=== PATIENT | female | born 1995 | race African-American/Black ===

== ENCOUNTER 2017-02-16 10:47 | Emergency (ER) | payer MEDICAID ==
[~2017-02-16] VITALS: Ht 157.5 cm; Wt 50.3 kg
[2017-02-16 11:06] VITALS: BP_SYST 117
--- NOTE | 2017-02-16 11:06 | NUR ---
Pt to bed 7
--- NOTE | 2017-02-16 11:25 | NUR ---
Pt complains of mid abdominal pain since this morning at 0800, had an episode of diarrhea and nausea but denies vomiting, or fever. Pt states when she ate she felt like she had to vomit but nothing came out. Pt complains of generalized weakness. Pt was able to ambulate into the ER with no noted difficulty. No other injuries/complaints per pt or noted.
--- NOTE | 2017-02-16 11:29 | NUR ---
Dr Griffiths at bedside examining patient
[2017-02-16] MEDS ORDERED: ONDANSETRON 4 MG ODT TAB PO ONE (11:45)
[2017-02-16] MEDS ORDERED: IBUPROFEN 800 MG TABLET PO ONE (11:45)
[2017-02-16 12:05] LABS: BASOPHILS # (AUTO) 0.1 K/uL (0.0-0.2); BASOPHILS % (AUTO) 0.4 % (0.0-2.0); EOSINOPHILS # (AUTO) 0.2 K/uL (0.0-0.4); EOSINOPHILS % (AUTO) 1.6 % (0.0-4.0); HEMATOCRIT 47.5 % (36-48); HEMOGLOBIN 15.7 g/dL (12.0-16.0); LYMPHOCYTES # (AUTO) 0.9 K/uL (1.0-5.5); LYMPHOCYTES % (AUTO) 7.3 % (20.5-51.5); MEAN CORPUSCULAR HEMOGLOBIN 28 pg (27-31); MEAN CORPUSCULAR HGB CONC 33 % (32-36); MEAN CORPUSCULAR VOLUME 83 fL (79.0-98.0); MONOCYTES # (AUTO) 0.6 K/uL (0.0-1.0); MONOCYTES % (AUTO) 4.8 % (1.7-9.3); NEUTROPHILS % (AUTO) 85.9 % (40.0-70.0); PLATELET COUNT (AUTO) 349 K/uL (130-430); RED BLOOD CELL COUNT(AUTO) 5.73 MIL/uL (4.2-6.2); RED CELL DISTRIBUTION WIDTH 11.7 % (9.0-15.0); WHITE BLOOD COUNT (AUTO) 12.8 K/uL (4.5-11.0)
[2017-02-16 12:17] LABS: CREATININE 0.69 mg/dL (0.55-1.30); POTASSIUM 3.7 mmol/L (3.5-5.1)
[2017-02-16 12:21] LABS: PROTHROMBIN TIME 11.3 SECS (9.5-12.5)
[2017-02-16 12:22] LABS: TOTAL BILIRUBIN 0.5 mg/dL (0.0-1.0)
--- NOTE | 2017-02-16 12:43 | NUR ---
Pain medication was given, no adverse reaction. Will continue to monitor
--- NOTE | 2017-02-16 13:01 | NUR ---
Pt resting in bed, VS WNL.
[2017-02-16 13:55] VITALS: BP_SYST 108
--- NOTE | 2017-02-16 13:55 | NUR ---
Patient given written and verbal discharge instructions and verbalizes understanding. ER MD discussed with patient the results and treatment provided. Patient in stable condition. ID arm band removed. Rx of Cipro, Zofran, Ibuprogen given. Patient educated on pain management and to follow up with PMD. Pain Scale 0. Opportunity for questions provided and answered.
== END 2017-02-16 13:55 | disposition home or self-care (01) ==
LOC: SED 10:47
DX: R10.84 Generalized abdominal pain (principal); R11.0 Nausea
CPT/HCPCS: 36415; 74176; 80053; 82150; 83690; 84703; 85025; 85610; 85730; 99285; Q0162

== ENCOUNTER 2017-05-09 11:12 | Emergency (ER) | payer MEDICAID ==
[~2017-05-09] VITALS: Ht 157.5 cm; Wt 51.3 kg
[2017-05-09 11:35] VITALS: BP_SYST 110
[2017-05-09 12:59] LABS: BASOPHILS # (AUTO) 0.1 K/uL (0.0-0.2); BASOPHILS % (AUTO) 0.7 % (0.0-2.0); EOSINOPHILS # (AUTO) 0.2 K/uL (0.0-0.4); EOSINOPHILS % (AUTO) 1.8 % (0.0-4.0); HEMATOCRIT 44.6 % (36-48); HEMOGLOBIN 14.4 g/dL (12.0-16.0); LYMPHOCYTES # (AUTO) 2.1 K/uL (1.0-5.5); LYMPHOCYTES % (AUTO) 23.7 % (20.5-51.5); MEAN CORPUSCULAR HEMOGLOBIN 27 pg (27-31); MEAN CORPUSCULAR HGB CONC 32 % (32-36); MEAN CORPUSCULAR VOLUME 84 fL (79.0-98.0); MONOCYTES # (AUTO) 0.7 K/uL (0.0-1.0); MONOCYTES % (AUTO) 7.7 % (1.7-9.3); NEUTROPHILS # (AUTO) 5.9 K/uL (1.8-7.7); NEUTROPHILS % (AUTO) 66.1 % (40.0-70.0); PLATELET COUNT (AUTO) 356 K/uL (130-430); RED BLOOD CELL COUNT(AUTO) 5.31 MIL/uL (4.2-6.2); RED CELL DISTRIBUTION WIDTH 12.4 % (9.0-15.0)
[2017-05-09 13:08] LABS: CALCIUM 9.3 mg/dL (8.4-11.0); CREATININE 0.63 mg/dL (0.55-1.30); INR 1.1 (0.8-1.2); POTASSIUM 3.6 mmol/L (3.5-5.1); PROTHROMBIN TIME 10.8 SECS (9.5-12.5)
[2017-05-09 13:13] LABS: ALBUMIN 4.2 g/dL (3.4-4.8); TOTAL BILIRUBIN 0.5 mg/dL (0.0-1.0)
[2017-05-09] MEDS ORDERED: IOHEXOL 100 ML IV ONE (13:57)
[2017-05-09] MEDS ORDERED: IBUPROFEN 600 MG TABLET PO ONE (14:00)
[2017-05-09 15:00] VITALS: BP_SYST 128
== END 2017-05-09 15:00 | disposition home or self-care (01) ==
LOC: SED 11:12
DX: K11.20 Sialoadenitis, unspecified (principal)
CPT/HCPCS: 36415; 70491; 80053; 81025; 84703; 85025; 85610; 85730; 99285; Q9967

== ENCOUNTER 2018-04-16 08:02 | Emergency (ER) | payer MEDICAID ==
[~2018-04-16] VITALS: Ht 157.5 cm; Wt 47.6 kg
[2018-04-16 08:02] VITALS: BP_SYST 101
--- NOTE | 2018-04-16 08:02 | NUR ---
BROUGHT BACK TO BED #6 AND TRIAGED. REPORT GIVEN TO MARILEE
--- NOTE | 2018-04-16 08:15 | NUR ---
Pt C/O productive cough w/ green sputum, body aches and sore throat x 1 week. Pt states that the past three days symptoms have progressively worsened. Pt has been experiencing poor appetite and difficulty sleeping as well. Pt has hx of bronchitis and states it feels like what she is experiencing.
--- NOTE | 2018-04-16 08:20 | NUR ---
ER at bedside examining patient.
--- NOTE | 2018-04-16 08:22 | NUR ---
Flu swab sent to lab
--- NOTE | 2018-04-16 09:12 | NUR ---
Respiratory at bedside for treatment
[2018-04-16] MEDS ORDERED: IPRATROPIUM/ALBUTEROL SULFATE 3 ML AMPUL.NEB (DUONEB) INH ONE (09:15)
[2018-04-16 10:10] VITALS: BP_SYST 101
--- NOTE | 2018-04-16 10:10 | NUR ---
Patient given written and verbal discharge instructions and verbalizes understanding. ER MD discussed with patient the results and treatment provided. Patient in stable condition. ID arm band removed. Rx of Promethazine hydrochloride/ dextromethorphan hydrobromide given. Opportunity for questions provided and answered. Medication side effect fact sheet provided.
== END 2018-04-16 10:10 | disposition home or self-care (01) ==
LOC: SED 08:02
DX: J06.9 Acute upper respiratory infection, unspecified (principal)
CPT/HCPCS: 36415; 71045; 86710; 94640; 99285; J7620

== ENCOUNTER 2019-04-27 12:50 | Emergency (ER) | payer MEDICAID, OTHER ==
[~2019-04-27] VITALS: Ht 160 cm; Wt 45.4 kg
[2019-04-27 12:54] VITALS: BP_SYST 110
--- NOTE | 2019-04-27 13:29 | NUR ---
Patient to ER bed H1 to gown for evaluation. Side rails up.
--- NOTE | 2019-04-27 13:32 | NUR ---
PT C/O POSSIBLE ALLERGIC RX.NO ACUTE DISTRESS NOTED.
--- NOTE | 2019-04-27 13:33 | NUR ---
ASTON CORNELIUS at bedside examining patient.
[2019-04-27] MEDS ORDERED: DIPHENHYDRAMINE INJ 50 MG/ML VIAL IM ONE (13:45)
[2019-04-27] MEDS ORDERED: DEXAMETHASONE SOD PHOSPHATE 10 MG/ML VIAL IM ONE (13:45)
[2019-04-27] MEDS ORDERED: DIPHENHYDRAMINE HCL 50 MG CAPSULE PO ONE (14:15)
[2019-04-27] MEDS ORDERED: PREDNISONE 20 MG TABLET PO ONE (14:15)
--- NOTE | 2019-04-27 14:30 | NUR ---
Administered Prednisone and Benadryl PO as ordered by Sonia Norwood. Patient tolerated the medications well.
--- NOTE | 2019-04-27 14:34 | NUR ---
Patient given written and verbal discharge instructions and verbalizes understanding. ER MD discussed with patient the results and treatment provided. Patient in stable condition. ID arm band removed. Rx of Prednisone given. Patient educated on pain management and to follow up with PMD. Pain Scale 0/10. Opportunity for questions provided and answered. Medication side effect fact sheet provided. Advised the patient not to drive while waking Diphenhydramine 50mg. Patient verbalized understanding.
[2019-04-27 14:36] VITALS: BP_SYST 110
== END 2019-04-27 14:34 | disposition home or self-care (01) ==
LOC: SED 12:50
DX: T78.1XXA Other adverse food reactions, not elsewhere classified, initial encounter (principal); X58.XXXA Exposure to other specified factors, initial encounter
CPT/HCPCS: 99283; J1200; J7512; Q0163; J1100

== ENCOUNTER 2019-07-04 15:03 | Emergency (ER) | payer OTHER ==
[~2019-07-04] VITALS: Ht 160 cm; Wt 49.9 kg
[2019-07-04 15:09] VITALS: BP_SYST 99
--- NOTE | 2019-07-04 16:04 | NUR ---
Patient to ER bed 04 to gown for evaluation. Side rails up.
--- NOTE | 2019-07-04 16:06 | NUR ---
Patient arrived in the the ED c/o cough, congestion, weakness and shortness of breath that started a couple of days ago. Patient denied any chest pain. Denied any fevers, chills, nausea or vomiting. Patient is alert and oriented x4, respirations even and unlabored, speaking in full sentences, ambulating with a steady gait. VSS, pain level 4/10. Mom at bedside. Informed of the approximate wait time. Instructed to notify ED staff for any changes in condition or worsening of symptoms. Patient verbalized understanding.
--- NOTE | 2019-07-04 16:11 | NUR ---
Called and spoke with lab regarding pending results for flu. Spoke with Yeni in lab. Influenza test is negative.
--- NOTE | 2019-07-04 16:13 | NUR ---
ER Dr. Koo at bedside examining patient.
[2019-07-04] MEDS ORDERED: ACETAMINOPHEN 500 MG TABLET PO ONE (16:30)
--- NOTE | 2019-07-04 16:33 | NUR ---
Administered Tylenol PO as ordered by Dr. Raymond. Patient tolerated the medication well. See eMAR for details.
--- NOTE | 2019-07-04 17:25 | NUR ---
Patient refused the IV start and meds. Dr. Raymond is aware.
[2019-07-04] MEDS ORDERED: NACL 0.9% 2,000 ML IV ONE (17:30)
--- NOTE | 2019-07-04 18:00 | NUR ---
# 18 gauge angiocath placed to LAC. Use of asceptic technique. Opsite placed over site. Blood return noted. Flushed with 10 cc of normal saline. No evidence of infiltration noted. Patient tolerated well.
--- NOTE | 2019-07-04 18:55 | NUR ---
ER Dr. Koo at bedside re-examining patient.
[2019-07-04] MEDS ORDERED: IBUPROFEN 600 MG TABLET PO ONE (19:45)
[2019-07-04 20:40] VITALS: BP_SYST 95
--- NOTE | 2019-07-04 20:40 | NUR ---
Patient given written and verbal discharge instructions and verbalizes understanding. ER MD Dr. Escobar discussed with patient the results and treatment provided. Patient in stable condition. ID arm band removed. IV catheter removed intact and dressing applied, no active bleeding. Patient educated on pain management and to follow up with PMD. Pain Scale 0/10. Opportunity for questions provided and answered. Medication side effect fact sheet provided.
== END 2019-07-04 20:40 | disposition home or self-care (01) ==
LOC: SED 15:03
DX: J06.9 Acute upper respiratory infection, unspecified (principal)
CPT/HCPCS: 36415; 81025; 84484; 86710; 93005; 99284; J7030

== ENCOUNTER 2021-02-12 11:46 | Emergency (ER) | payer OTHER, SELFPAY ==
[~2021-02-12] VITALS: Ht 160 cm; Wt 56.7 kg
[2021-02-12 12:12] VITALS: BP_SYST 118
--- NOTE | 2021-02-12 12:19 | NUR ---
Patient to TENT 1 to gown for evaluation. Side rails up.
--- NOTE | 2021-02-12 12:25 | NUR ---
PT ARRIVES FROM HOME FOR COUGH AND CHEST TIGHTNESS. PT REPORTS A NEGATIVE COVID TEST LAST WEEK. DENIES ANY FEVER. PT IS ALSO CONCERNED SHE ID 16 WEEKS
--- NOTE | 2021-02-12 13:00 | NUR ---
ER at bedside examining patient.
[2021-02-12] MEDS ORDERED: ZIT250 PO (13:54)
[2021-02-12] MEDS ORDERED: ALBU8.5H8 INH (13:54)
[2021-02-12] MEDS ORDERED: PRED20TA PO (13:54)
--- NOTE | 2021-02-12 14:00 | NUR ---
Patient transported to radiology via WC , accompanied by US.
--- NOTE | 2021-02-12 16:41 | NUR ---
Patient given written and verbal discharge instructions and verbalizes understanding. ER MD discussed with patient the results and treatment provided. Patient in stable condition. ID arm band removed. Rx of ALBUTEROL AND PREDNISONE, Z-PACK given. Patient educated on pain management and to follow up with PMD. Pain Scale 0/10. Opportunity for questions provided and answered. Medication side effect fact sheet provided.
--- NOTE | 2021-02-12 16:50 | NUR ---
Note undone in EDM - 02/12/21 at 2353 by YURI Patient given written and verbal discharge instructions and verbalizes understanding. ER discussed with patient the results and treatment provided. Patient in stable condition. ID arm band removed. Rx of ALBUTEROL, PREDNSIONE,Z-PACK given. Patient educated on pain management and to follow up with PMD. Pain Scale 0/10 Opportunity for questions provided and answered. Medication side effect fact sheet provided.
[2021-02-12 23:53] VITALS: BP_SYST 118
== END 2021-02-12 16:41 | disposition home or self-care (01) ==
LOC: SED 11:46
DX: O99.512 Diseases of the respiratory system complicating pregnancy, second trimester (principal); J20.9 Acute bronchitis, unspecified; Z3A.16 16 weeks gestation of pregnancy; Z79.899 Other long term (current) drug therapy
CPT/HCPCS: 71045; 76801; 76802; 99284

== ENCOUNTER 2022-06-02 21:14 | Emergency (ER) | payer OTHER ==
[~2022-06-02 21:14] MED LIST: ALBU8.5H8 INH; PRED20TA PO; ZIT250 PO
[2022-06-02 21:24] VITALS: BP_SYST 112
[2022-06-02] MEDS ORDERED: ONDANSETRON 4 MG ODT TAB ONE (21:49)
[2022-06-02] MEDS ORDERED: ONDANSETRON 4 MG ODT TAB PO ONE ×2 (22:00→23:45)
[2022-06-02] MEDS ORDERED: ONDA-8 TL (22:42)
[2022-06-02 23:49] VITALS: BP_SYST 115
== END 2022-06-02 23:49 | disposition home or self-care (01) ==
LOC: SED 21:14
DX: R19.7 Diarrhea, unspecified (principal); R11.10 Vomiting, unspecified; Z79.899 Other long term (current) drug therapy
CPT/HCPCS: 99283; 81025; Q0162